=== PATIENT | female | born 1955 | race American Indian/Alaskan Native ===

== ENCOUNTER 2023-12-27 16:22 | Emergency (ER) | payer OTHER, BC ==
[2023-12-27 16:36] VITALS: BP 169/68; PULSE 72; RESP 18; TEMP 98; BMI 24.9
== END 2023-12-27 18:08 | disposition home or self-care (01) ==
LOC: JERFT 16:22
DX: M79.671 Pain in right foot (principal); W01.198A Fall on same level from slipping, tripping and stumbling with subsequent striking against other object, initial encounter
CPT/HCPCS: 73630-TC-RT-FY; 99283-25

== ENCOUNTER 2024-08-06 17:36 | Inpatient (IN) | payer OTHER, BC ==
[2024-08-06 17:45] VITALS: BMI 25.5
[2024-08-06] MEDS ORDERED: HEPARIN INFUSION - 25,000 UNITS/500 ML INFUS.BAG IVPB ONE (20:28)
[2024-08-06] MEDS ORDERED: HEPARIN NA (PORCINE) 5,000 UNITS/ML 1ML VIAL ONE (20:28)
[2024-08-06 20:30] LABS: BASO % 0.4 % (0-2.0); EOS % 4.9 % (0-4.5); HEMATOCRIT 38.3 % (32.4-45.2); HEMOGLOBIN 12.9 GM/dL (10.7-15.3); LYMPH % 31.3 % (8-40); MCH 27.1 pg (25.7-33.7); MCHC 33.6 g/dl (32.0-36.0); MEAN CELL VOLUME 80.7 fl (80-96); MEAN PLT VOLUME 7.9 fl (7.5-11.1); MONO % 7.1 % (3.8-10.2); NEUT % 56.3 % (42.8-82.8); PLATELET COUNT 243 10^3/uL (134-434); RBC 4.75 M/mm3 (3.60-5.2); RDW 13.9 % (11.6-15.6); WHITE BLOOD COUNT 5.4 K/mm3 (4.0-10.0)
[2024-08-06] MEDS: HEPARIN NA (PORCINE) 5,000 UNITS/ML 1ML VIAL IVPUSH ONE (20:30)
[2024-08-06] MEDS: HEPARIN INFUSION - 25,000 UNITS/500 ML INFUS.BAG IVPB SCH (20:31)
[2024-08-06 20:41] LABS: PROTHROMBIN TIME (PATIENT) 11.5 SEC (9.7-13.0)
[2024-08-06 20:49] LABS: POTASSIUM 3.8 mmol/L (3.5-5.1)
[2024-08-06 20:51] LABS: ALBUMIN 3.9 g/dl (3.4-5.0); CALCIUM 9.7 mg/dL (8.5-10.1)
[2024-08-06 20:53] LABS: BLOOD UREA NITROGEN 11.8 mg/dL (7-18)
[2024-08-06 20:55] LABS: CREATININE 0.8 mg/dL (0.55-1.3)
[2024-08-06 20:56] LABS: BILIRUBIN,TOTAL 0.6 mg/dL (0.2-1); TOT PROT 7.4 g/dl (6.4-8.2)
[2024-08-07 14:02] VITALS: BP 135/78; PULSE 71; RESP 18; TEMP 98.8
== END 2024-08-07 14:46 | disposition home or self-care (01) | DRG 307 ==
LOC: JER 17:36 → JERBED 18:17 → J4W 23:13
PROVIDERS: ADMIT Family Medicine; ATTEND Family Medicine
DX: I07.8 Other rheumatic tricuspid valve diseases (principal); E78.5 Hyperlipidemia, unspecified; R01.1 Cardiac murmur, unspecified; D36.9 Benign neoplasm, unspecified site
CPT/HCPCS: 36415; 80053; 84484; 85025; 85610; 85730; 86850; 86900; 86901; 87040; 93005; 93010; 93306-TC; 99285-25; J1644